=== PATIENT | female | born 1960 ===

== ENCOUNTER 2017-03-27 00:49 | Emergency (ER) | payer MEDICAID, OTHER ==
[2017-03-27 01:35] VITALS: BP 151/103; PULSE 98; RESP 17; TEMP 98.1; O2SAT 98
[2017-03-27] MEDS ORDERED: DiphenhydrAMINE 50 mg/ml Inj IV STA (02:05)
--- NOTE | 2017-03-27 02:09 | ED PDOC ---
HPI: Skin/Bite Injury Time Seen by Provider: 03/27/17 01:48 Chief Complaint (Nursing): Abnormal Skin Integrity Chief Complaint (Provider): rash History Per: Patient History/Exam Limitations: no limitations Onset/Duration Of Symptoms: Days Current Symptoms Are (Timing): Still Present Quality Of Symptoms: Itching Additional History Per: Patient Additional Complaint(s): 56 y/o female presents for evaluation of rashes x 2 days. Patient states she had a pruritic rash to tailbone x 2 days, has been applying A&D ointment. Today while at the laundry mat patient noted red pruritic bumps to bilateral arms, and after taking a shower she noticed small bruises to bilateral lower extremities and is unsure how long they have been there. Denies fever, chest pain, shortness of breath, palpitations, known allergen. Past Medical History Reviewed: Historical Data, Nursing Documentation, Vital Signs Vital Signs: Last Vital Signs Temp 98.1 F 03/27/17 01:14 Pulse 98 H 03/27/17 01:14 Resp 17 03/27/17 01:14 BP 151/103 H 03/27/17 01:14 Pulse Ox 98 03/27/17 02:10 - Medical History PMH: Hypothyroidism - Surgical History Surgical History: Appendectomy - Family History Family History: States: No Known Family Hx - Home Medications Home Medications: Ambulatory Orders Medication Instructions Recorded Cyclobenzaprine [Flexeril] 5 mg PO BID PRN #20 tab 07/07/14 Levothyroxine [Synthroid] 0.112 mg PO DAILY 07/07/14 DiphenhydrAMINE [Benadryl] 50 mg PO Q6 PRN #15 cap 03/27/17 Hydrocortisone 1% Cream [Cortizone 1 applic TP BID #1 tube 03/27/17 1% Cream] - Allergies Allergies/Adverse Reactions: Allergies Allergy/AdvReac Type Severity Reaction Status Date / Time No Known Allergies Allergy Verified 07/07/14 05:29 Review of Systems ROS Statement: Except As Marked, All Systems Reviewed And Found Negative Skin: Positive for: Rash Physical Exam - Reviewed Nursing Documentation Reviewed: Yes Vital Signs Reviewed: Yes - Physical Exam Appears: Positive for: Well, Non-toxic, Uncomfortable (anxious) Head Exam: Positive for: ATRAUMATIC, NORMAL INSPECTION, NORMOCEPHALIC Skin: Positive for: Rash (bite-appearing lumps with surrounding erythema noted bilateral upper extremities; no drainage, temp change noted. scattered faint contusions noted bilateral lower extremities; nontender. Papular rash/scaly skin noted midline over coccyx; no lesions, vesicles, drainage. ) ENT: Positive for: Normal ENT Inspection Cardiovascular/Chest: Positive for: Regular Rate, Rhythm Respiratory: Positive for: Normal Breath Sounds Back: Positive for: Normal Inspection Extremity: Positive for: Normal ROM Neurologic/Psych: Positive for: Alert, Oriented - Laboratory Results Result Diagrams: 03/27/17 02:30 03/27/17 02:30 - ECG O2 Sat by Pulse Oximetry: 98 - Progress ED Course And Treament: labs, Benadryl IV Patient educated on findings, discharged with rx Benadryl, Hydrocortisone cream. Advised follow up PMD 2-3 days. Return precautions given Disposition - Clinical Impression Clinical Impression: Insect bite of upper arm with local reaction, Dermatitis - Patient ED Disposition Is Patient to be Admitted: No Counseled Patient/Family Regarding: Studies Performed, Diagnosis, Need For Followup, Rx Given - Disposition Referrals: FAMILY PROVIDER,NO [Primary Care Provider] - Disposition: Routine/Home Disposition Time: 03:30 Condition: IMPROVED Prescriptions: DiphenhydrAMINE [Benadryl] 50 mg PO Q6 PRN #15 cap PRN Reason: Allergy Symptoms Hydrocortisone 1% Cream [Cortizone 1% Cream] 1 applic TP BID #1 tube Instructions: Dermatitis (ED), Insect Bite or Sting (ED) Forms: [employer] (Maltese)
[2017-03-27] MEDS ORDERED: DiphenhydrAMINE 50 mg/ml Inj ONE (02:22)
[2017-03-27 02:43] LABS: BASO # 0.1 K/uL (0.0-0.2); BASO % 1.1 % (0.0-2.0); EOS # 0.1 K/uL (0.0-0.7); EOS % 1.5 % (0.0-4.0); HEMOGLOBIN 13.4 g/dL (12.0-16.0); LYMPH # 2.7 K/uL (1.0-4.3); LYMPH % 31.7 % (20.0-40.0); MEAN CELL VOLUME 86.8 fl (81.0-99.0); MEAN CORPUSCULAR HEMOGLOBIN 29.4 pg (27.0-31.0); MEAN CORPUSCULAR HGB CONC 33.9 g/dL (33.0-37.0); MEAN PLATELET VOLUME 8.4 fl (7.2-11.7); MONO # 0.8 K/uL (0.0-0.8); MONO % 9.3 % (0.0-10.0); NEUT # 4.8 K/uL (1.8-7.0); NEUT % 56.4 % (50.0-75.0); NRBC % 0.1 % (0.0-0.0); RBC 4.55 Mil/uL (3.80-5.20); RED CELL DISTRIBUTION WIDTH 13.5 % (11.5-14.5); WHITE BLOOD COUNT 8.4 K/uL (4.8-10.8)
[2017-03-27 02:48] LABS: ALB/GLOB RATIO 1.3 (1.0-2.1); ALBUMIN 4.7 g/dL (3.5-5.0); ALT/SGPT 30 U/L (9-52); AST/SGOT 21 U/L (14-36); BLOOD UREA NITROGEN 14 mg/dl (7-17); CALCIUM 9.7 mg/dL (8.4-10.2); GFR AFRICAN-AMERICAN > 60; GFR NON-AFRICAN AMERICAN > 60
[2017-03-27 02:53] LABS: PARTIAL THROMBOPLASTIN TIME 32.8 Seconds (25.6-37.1); PROTHROMBIN TIME 11.3 Seconds (9.8-13.1)
== END 2017-03-27 03:53 | disposition home or self-care (01) ==
LOC: H.ER 00:49
DX: L30.9 Dermatitis, unspecified (principal); E03.9 Hypothyroidism, unspecified
CPT/HCPCS: 80053; 85025; 85610; 85730; 99282; J1200